=== PATIENT | female | born 1965 | race Caucasian/White ===

== ENCOUNTER → 2024-09-24 11:22 | Outpatient (BNVA) | payer OTHER, MEDICAID, SELFPAY | PROVIDERS: PCP Family Medicine; Visit Provider Family Medicine | DX: G25.81 Restless legs syndrome (principal); G57.93 Unspecified mononeuropathy of bilateral lower limbs; Z13.6 Encounter for screening for cardiovascular disorders | CPT/HCPCS: 80053; 80061; 82607; 82728; 83036; 84443; 85025 ==

== ENCOUNTER 2024-10-07 12:45 | Outpatient (CLI) | payer OTHER, MEDICAID, SELFPAY ==
--- NOTE | 2024-10-07 12:40 | MM_ITS ---
WS: [id number] BILATERAL 3D TOMOSYNTHESIS DIGITAL SCREENING MAMMOGRAPHY WITH CAD CLINICAL INFORMATION: SCREENING HISTORY: Screening mammogram. No current complaints. COMPARISON: None. TECHNIQUE: Bilateral CC and MLO views. FINDINGS: Scattered fibroglandular densities bilaterally. No suspicious focal mass, asymmetry, calcifications, or architectural distortion. No evidence of malignancy. Vascular calcification MM/MM scr BI tomosynthesis [id number] IMPRESSION: DENSITY: There are scattered areas of fibroglandular density. BI-RADS: 2 - Benign. FOLLOW UP: 1 Year Follow-up Recommend return to annual screening mammography.
== END 2024-10-07 12:46 | disposition home or self-care (01) ==
PROVIDERS: PCP Family Medicine; Visit Provider Family Medicine
DX: Z12.31 Encounter for screening mammogram for malignant neoplasm of breast (principal); D50.9 Iron deficiency anemia, unspecified; R92.323 Mammographic fibroglandular density, bilateral breasts; R92.1 Mammographic calcification found on diagnostic imaging of breast
CPT/HCPCS: 77063; 77067; 82728; 83550

== ENCOUNTER 2024-10-19 15:38 | Emergency (ER) | payer OTHER, MEDICAID, SELFPAY ==
[2024-10-19 15:41] VITALS: BP 105/68; PULSE 65; RESP 16; TEMP 36.6; O2SAT 94; BMI 23.8
[2024-10-19 16:07] VITALS: BP 114/62; PULSE 65; O2SAT 94
--- NOTE | 2024-10-19 16:15 | XRR_ITS ---
PROCEDURE INFORMATION: Exam: XR Left Knee Exam date and time: 10/19/2024 4:20 PM Age: 59 years old Clinical indication: Injury or trauma; Other: PT unsure if injury; Blunt trauma; Left; Injury details: PT presents with bilateral knee pain. Patient verbalizes heavy ETOH in system TECHNIQUE: Imaging protocol: Radiologic exam of the left knee. Views: 3 views. COMPARISON: CR XR tibia fibula LT 2V [id number] 10/19/2024 4:20 PM FINDINGS: Bones/joints: Normal. Soft tissues: Normal. XR/XR knee LT 3V* [id number] IMPRESSION: No acute findings.
--- NOTE | 2024-10-19 16:15 | XRR_ITS ---
PROCEDURE INFORMATION: Exam: XR Left Tibia and Fibula Exam date and time: 10/19/2024 4:20 PM Age: 59 years old Clinical indication: Pain; Lower leg; Left; Additional info: Injury/pain TECHNIQUE: Imaging protocol: Radiologic exam of the left tibia and fibula. Views: 2 views. COMPARISON: CR XR knee LT 3V* [id number] 10/19/2024 4:20 PM FINDINGS: Bones/joints: Normal. Soft tissues: Normal. XR/XR tibia fibula LT 2V [id number] IMPRESSION: No acute findings.
--- NOTE | 2024-10-19 16:16 | ED_ITS ---
HPI - Extremity Problem General: Chief complaint: Extremity Problem,Nontraumatic Stated complaint: both knee pain Time Seen by Provider: 10/19/24 15:47 Source: patient Mode of arrival: ambulatory Limitations: no limitations History of Present Illness: Patient is a 59-year-old female who presents to the emergency department incredibly intoxicated and sobbing complaining of left knee pain. Patient sta [place] she was walking today when she felt like her left knee buckled. She states she did not fall but now she has pain to her knee and has noticed some bruising laterally and is concerned about this. Patient has been ambulatory since the fall. Again she is incredibly intoxicated and frequently asked for pain medications. She denies any other injuries/concerns apart from the left knee area. Looking at previous documentation, she has seen primary care recently for symptoms related to lower extremity neuropathy and restless leg syndrome. MD Complaint: extremity pain and joint pain Onset (ago): hour(s) Pain Consistency: constant Location: left and knee Radiation: none Relieving factors: nothing Exacerbating factors: range of motion and palpation Associated symptoms: Reports no associated symptoms; Deny chest pain Related Data Home Medications ?Medication ?Instructions ?Recorded ?Confirmed bupropion HCl 100 mg tablet,12 hr 100 mg PO QAM 09/24/24 sustained-release (Wellbutrin SR) escitalopram oxalate 20 mg tablet 20 mg PO DAILY 09/2409/24/24 (Lexapro) lorazepam 1 mg tablet 1 mg PO TID PRN 09/24/2401/11 Allergies Allergy/AdvReac Type Severity Reaction Status Date / Time tramadol Allergy Mild skin Verified 09/24/24 09:43 blotchy trazodone Allergy Unknown Unknown Verified 09/24/24 09:43 IV contrast dye Allergy Intermediate swelling Uncoded 09/24/24 09:43 Review of Systems Card: Denies: chest pain Resp: Denies: dyspnea Musc: Reports: extremity pain and joint pain; Denies: neck pain, back pain, extremity swelling, joint swelling, joint redness, joint warmth, joint stiffness, limited range of motion or muscle weakness Neuro: Denies: numbness in extremities, weakness in extremities, sensory changes or difficulty walking [facility] ED PFSH: Medical History Marijuana use Smoker Anxiety Depression Surgical History History of bilateral tubal ligation History of laparoscopic cholecystectomy Family History Mother Ovarian cancer Father Liver cancer Alcohol dependence Sister Lupus (systemic lupus erythematosus) Sister Neuropathy Social History Smoking and tobacco/nicotine status: current every day tobacco/nicotine user cigarettes Packs smoked per day: 0.5 Years cigarettes smoked: 10 [ Other cigarette details: smoked of and on since the age of 16] Quit status (tobacco/nicotine): not considering quitting Second hand smoke exposure: Yes Alcohol intake: current Alcohol intake frequency: 0-2 Drinks per Day Alcohol type: beer Substance/Drug Use: current Substance/Drug use frequency: few times a week Adopted: No Caregiver/support person: Yes Lives independently: Yes Household members: significant other Marital status: Number of children: 3 service: No Current occupational status: disabled Pets and animals: Yes Pets & animals: cat(s) and dog(s) Do you think of yourself as: Straight/Heterosexual Current gender identity: Female Special kevin needs: No Agree to transfusion: Yes Physical Exam Const: COMMON NORMALS: patient oriented x3 and alert GENERAL APPEARANCE: cooperative, disheveled and odor of alcohol detected ORIENTATION/CONSCIOUSNESS: Yes awake, Yes oriented to person, Yes oriented to pl [address] and Yes oriented to time OTHER: intoxicated Extremity: COMMON NORMALS: full ROM, capillary refill normal, no joint enlargement, no clubbing, cyanosis or edema, no calf tenderness and no pedal edema GENERAL: Yes normal exam except as noted LEFT LOWER EXTREMITY: Yes knee joint (TTP lateral L knee; mild ecchymosis; no effusion) Left knee: Yes ROM (normal passive ROM) and Yes neurovascular exam (normal), Yes ankle joint (normal ROM of ankle joint) and Yes foot & digits (reporting neuropathy to feet) Neuro: COMMON NORMALS: patient oriented x3, moves all extremities, no focal mo tor deficits and no sensory deficits noted SENSORIUM/ORIENTATION: Yes alert, Yes oriented to person, Yes oriented to place and Yes oriented to time Course Vital Signs: Vital signs: Vital Signs Temperature 97.9 F 10/19/24 15:41 Pulse Rate 65 10/19/24 16:07 Respiratory Rate 16 10/19/24 15:41 Blood Pressure 114/62 10/19/24 16:07 Pulse Oximetry 94 10/19/24 16:07 Oxygen Delivery Me thod Room Air 10/19/24 16:07 MDM - Extremity (Nontraumatic) Medical Decision Making Patient's XRs are unremarkable. She is ambulatory here without difficulty or assistance. She frequently asked for pain medication. Reviewed previous documentation by primary care which reports neuropathy and RLS like symptoms. We did discuss Lyrica and Gabapentin-both of which she has been and don't work . Discussed other options for RLS but states she tried those too. Asks multiple times for pain meds which I told her I am not writing her for today based on symptoms. Recommend she follows up with primary care. XR interpretation done by ED provider, pending radiology final review Discharge Plan Discharge Patient Disposition: Home Clinical Impression: Knee joint pain Qualifiers: Laterality: left Qualified Code(s): M25.562 - Pain in left knee Condition: Stable Prescriptions: No Action bupropion HCl [Wellbutrin SR] 100 mg tablet sustained-release 12 hr 100 mg PO QAM lorazepam 1 mg tablet 1 mg PO TID PRN escitalopram oxalate [Lexapro] 20 mg tablet 20 mg PO DAILY Discharge Orders: Discharge ED (Routine); Ordered 10/19/24 Ordered By: Beth Mcgraw Referrals: Dania Crook MD [Primary Care Provider, [facility]] Activity Restrictions/Additional Instructions: As we discussed, please contact your primary care provider to schedule a follow- up visit to go over recent blood work as well as options for treatment of your neuropathy and restless leg syndrome. Print Language: Belarusian Coding Level of Care Code ED Chief Technician [employer] for [facility] Monroy
[2024-10-19] MEDS: ketorolac 30 mg/mL INJ IM (16:21)
== END 2024-10-19 16:59 | disposition home or self-care (01) ==
PROVIDERS: Emergency Provider Physician Assistant; PCP Family Medicine
DX: M25.562 Pain in left knee (principal); F17.210 Nicotine dependence, cigarettes, uncomplicated
CPT/HCPCS: 73562; 73590; 96372; 99284; J1885

== ENCOUNTER 2024-11-02 23:45 | Emergency (ER) | payer OTHER, MEDICAID, SELFPAY ==
[2024-11-03] VITALS (7 sets, daily range): BP systolic 108–140; BP diastolic 68–83; PULSE 51–55; RESP 16; O2SAT 92–95; BMI 24.5
[2024-11-03 01:30] LABS: Bilirubin Urine Negative (Negative); Blood Urine Negative (Negative); Glucose Urine UA Negative (Normal); Ketones Urine Negative (Negative); Leukocyte Esterase Urine 2+ (Negative); Nitrate Urine Negative (Negative); Protein Urine Negative (Negative); Specific Gravity, Urine 1.005 (1.005-1.030); Urine Appearance Clear (CLEAR); Urine Color Yellow (Yellow); Urobilinogen Urine 0.2 mg/dL (Negative); pH Urine 6.5 (5-7)
[2024-11-03 01:35] LABS: Bacteria Urine None Seen /hpf; Hyaline Casts Urine 0-4 /lpf; RBC Urine 0-2 /hpf (0-2)
[2024-11-03 02:08] LABS: Basophils % 0.4 %; Eosinophils # 0.2 10^3/uL (0.0-0.8); Eosinophils % 3.9 %; Hematocrit 41.2 % (36-47); Lymphocytes # 2.3 10^3/uL (0.8-4.8); Lymphocytes % 50.1 %; Mean Corpuscular HGB Conc 33.5 g/dL (30-55); Mean Corpuscular Hemoglobin 32.6 pg (27-33); Mean Corpuscular Volume 97.4 fl (85-98); Mean Platelet Volume 9.1 fL (7.4-10.4); Monocytes # 0.4 10^3/uL (0.2-0.9); Monocytes % 9.6 %; Neutrophils # 1.63 10^3/uL (1.8-7.7); Neutrophils % 35.8 %; Nucleated Red Blood Cells % 0 %; Platelet Count 214 10^3/cmm (157-399); Red Blood Count 4.23 10^6/uL (3.85-5.65); White Blood Count 4.57 10^3/uL (3.29-11.43)
[2024-11-03 02:10] LABS: Add Urine Culture? No
[2024-11-03 02:15] LABS: Erythrocyte Sedimentation Rate 15 mm/hr (0-15)
[2024-11-03 02:33] LABS: Lactic Sepsis W/Reflex 1.6 mmol/L (0.5-2.2)
[2024-11-03 02:34] LABS: Alanine Aminotransferase 20 U/L (0-33); Albumin Level 4.2 g/dL (3.5-5.2); Alkaline Phosphatase 88 U/L (35-105); Anion Gap 15.2 (5-19); Aspartate Amino Transferase 33 U/L (0-32); Blood Urea Nitrogen 10 mg/dL (6-20); Calcium 8.8 mg/dL (8.5-10.5); Carbon Dioxide 28 mmol/L (22-29); Chloride 102 mmol/L (98-107); Creatinine Clr Calc Pharmacy 103.9872; Globulin 2.9 g/dL (1.3-4.6); Glomerular Filtration Rate 126.3 mL/min (90-130); Glucose 86 mg/dL (65-115); Osmolality Calculated 290 mOsm/kg (285-295); Potassium 4.2 mmol/L (3.5-5.1); Sodium 141 mmol/L (136-145); Total Protein 7.1 g/dL (6.6-8.7)
[2024-11-03 02:36] LABS: Slide Review Slide Review Perform
--- NOTE | 2024-11-03 03:00 | W.ED.EXTPRO ---
HPI - Extremity Problem General: Chief complaint: Extremity Injury, Lower Stated complaint: Lower Left Leg Injury Time Seen by Provider: 11/03/24 02:33 History of Present Illness: 59-year-old woman who presents to the emergency room with left leg pain. She states her core got wrapped around her leg and she has a superficial laceration of the left leg laterally just above the ankle that happened 3 days ago. She is also having some swelling in her ankle. It is tender. No redness. No warmth. No signs of infection. She does have some edema on the lateral malleolus. No injury to that. Related Data Home Medications ?Medication ?Instructions ?Recorded ?Confirmed bupropion HCl 100 mg tablet,12 hr 100 mg PO QAM 09/24/24 09/24/24 sustained-release (Wellbutrin SR) escitalopram oxalate 20 mg tablet 20 mg PO DAILY 09/24/24 09/24/24 (Lexapro) lorazepam 1 mg tablet 1 mg PO TID PRN 09/24/24 09/24/24 Previous Rx's ?Medication ?Instructions ?Recorded cephalexin 500 mg tablet 500 mg PO TID 7 days #21 tabs 11/03/24 diclofenac sodium 50 mg 50 mg PO BID PRN pain #14 tabs 11/03/24 tablet,delayed release Allergies Allergy/AdvReac Type Severity Reaction Status Date / Time tramadol Allergy Mild skin Verified 09/24/24 09:43 blotchy trazodone Allergy Unknown Unknown Verified 09/24/24 09:43 IV contrast dye Allergy Intermediate swelling Uncoded 09/24/24 09:43 Review of Systems Narrative: Constitutional symptoms: Negative except as documented in HPI. Skin symptoms: Negative except as documented in HPI. Eye symptoms: Negative except as documented in HPI. ENMT symptoms: Negative except as documented in HPI. Respiratory symptoms: Negative except as documented in HPI. Cardiovascular symptoms: Negative except as documented in HPI. Gastrointestinal symptoms: Negative except as documented in HPI. Genitourinary symptoms: Negative except as documented in HPI. Musculoskeletal symptoms: Negative except as documented in HPI. Neurologic symptoms: Negative except as documented in HPI. Psychiatric symptoms: Negative except as documented in HPI. Endocrine symptoms: Negative except as documented in HPI. [facility] ED PFSH: Medical History Marijuana use Smoker Anxiety Depression Surgical History History of bilateral tubal ligation History of laparoscopic cholecystectomy Family History Mother Ovarian cancer Father Liver cancer Alcohol dependence Sister Lupus (systemic lupus erythematosus) Sister Neuropathy Social History Smoking and tobacco/nicotine status: current every day tobacco/nicotine user cigarettes Packs smoked per day: 0.5 Years cigarettes smoked: 10 [ Other cigarette details: smoked of and on since the age of 16] Quit status (tobacco/nicotine): not considering quitting Second hand smoke exposure: Yes Alcohol intake: current Alcohol intake frequency: 0-2 Drinks per Day Alcohol type: beer Substance/Drug Use: current Substance/Drug use frequency: few times a week Adopted: No Caregiver/support person: Yes Lives independently: Yes Household members: significant other Marital status: Number of children: 3 service: No Current occupational status: disabled Pets and animals: Yes Pets & animals: cat(s) and dog(s) Do you think of yourself as: Straight/Heterosexual Current gender identity: Female Special kevin needs: No Agree to transfusion: Yes Physical Exam Narrative: EXAM NARRATIVE: General: Alert, no acute distress. Skin: warm and dry there is a superficial laceration just above the left lateral malleolus. No signs of infection. No erythema. No warmth. Head: Normocephalic Neck: Trachea midline Eye: Extraocular movements are intact. Ears, nose, mouth and throat: Oral mucosa moist Respiratory: Respirations are non-labored Musculoskeletal: Normal ROM, some swelling of her left lateral malleolus Gastrointestinal: Abdomen does not appear distended Neurological: Alert and oriented, No focal neurological deficit observed. Psychiatric: Cooperative, appropriate mood & affect. Course Vital Signs: Vital signs: Vital Signs Pulse Rate 54 L 11/03/24 02:57 Respiratory Rate 16 11/03/24 00:17 Blood Pressure 139/75 11/03/24 02:57 Pulse Oximetry 95 11/03/24 02:57 Oxygen Delivery Me thod Room Air 11/03/24 00:17 MDM - Extremity (Nontraumatic) Medical Decision Making Medical decision making: Differential diagnosis including but not limited to and based on the above HPI, review of systems and physical exam in this patient with lower extremity swelling: Cellulitis, DVT, osteomyelitis, venous stasis dermatitis. Orders placed to evaluate differential diagnosis based on the above differential, HPI and physical exam Lab Review: Laboratory results were reviewed and interpreted by myself the emergency room physician. No leukocytosis. No anemia. No significant elevation in ESR or CRP. She does have a bit of a urinary tract infection. I reviewed the patient's medical record. Assessment and plan: Urinary tract infection Superficial laceration ? IV Rocephin and IV Toradol in the emergency room - Discharged home - Discussed plan with patient. Answered any questions. - Evaluation and treatment of this problem were appropriate in the emergency setting. Lab Data 11/03/24 01:57 11/03/24 01:57 Laboratory Results WBC 4.57 10^3/uL (3.29-11.43) 11/03/24 01:57 RBC 4.23 10^6/uL (3.85-5.65) 11/03/24 01:57 Hgb 13.80 g/dL (11.27-16.99) 11/03/24 01:57 Hct 41.2 % (36-47) 11/03/24 01:57 MCV 97.4 fl (85-98) 11/03/24 01:57 MCH 32.6 pg (27-33) 11/03/24 01:57 MCHC 33.5 g/dL (30-55) 11/03/24 01:57 RDW 13.0 % (12.1-15.1) 11/03/24 01:57 Plt Count 214 10^3/cmm (157-399) 11/03/24 01:57 MPV 9.1 fL (7.4-10.4) 11/03/24 01:57 Neut % (Auto) 35.8 % 11/03/24 01:57 Lymph % (Auto) 50.1 % 11/03/24 01:57 [place] % (Auto) 9.6 % 11/03/24 01:57 Eos % (Auto) 3.9 % 11/03/24 01:57 Baso % (Auto) 0.4 % 11/03/24 01:57 Neut # (Auto) 1.63 10^3/uL (1.8-7.7) L 11/03/24 01:57 Lymph # (Auto) 2.3 10^3/uL (0.8-4.8) 11/03/24 01:57 [place] # (Auto) 0.4 10^3/uL (0.2-0.9) 11/03/24 01:57 Eos # (Auto) 0.2 10^3/uL (0.0-0.8) 11/03/24 01:57 Baso # (Auto) 0.0 10^3/uL (0.0-0.1) 11/03/24 01:57 Nucleated RBC % (auto) 0 % 11/03/24 01:57 Nucleated RBCs # 0.0 /100WBC 11/03/24 01:57 ESR 15 mm/hr (0-15) 11/03/24 01:57 Sodium 141 mmol/L (136-145) 11/03/24 01:57 Potassium 4.2 mmol/L (3.5-5.1) 11/03/24 01:57 Chloride 102 mmol/L (98-107) 11/03/24 01:57 Carbon Dioxide 28 mmol/L (22-29) 11/03/24 01:57 Anion Gap 15.2 (5-19) 11/03/24 01:57 BUN 10 mg/dL (6-20) 11/03/24 01:57 Creatinine 0.5 mg/dL (0.5-0.9) 11/03/24 01:57 GFR Calculation 126.3 mL/min (90-130) 11/03/24 01:57 Glucose 86 mg/dL (65-115) 11/03/24 01:57 Calculated Osmolality 290 mOsm/kg (285-295) 11/03/24 01:57 Lactic Acid 1.6 mmol/L (0.5-2.2) 11/03/24 01:57 Calcium 8.8 mg/dL (8.5-10.5) 11/03/24 01:57 AST 33 U/L (0-32) H 11/03/24 01:57 ALT 20 U/L (0-33) 11/03/24 01:57 Alkaline Phosphatase 88 U/L (35-105) 11/03/24 01:57 C-Reactive Protein 3.0 mg/L (0.0-4.9) 11/03/24 01:57 Total Protein 7.1 g/dL (6.6-8.7) 11/03/24 01:57 Albumin 4.2 g/dL (3.5-5.2) 11/03/24 01:57 Globulin 2.9 g/dL (1.3-4.6) 11/03/24 01:57 Urine Color Yellow (Yellow) 11/03/24 01:06 Urine Appearance Clear (CLEAR) 11/03/24 01:06 Urine pH 6.5 (5-7) 11/03/24 01:06 Ur Specific [place] 1.005 (1.005-1.030) 11/03/24 01:06 Urine Protein Negative (Negative) 11/03/24 01:06 Urine Glucose (UA) Negative (Normal) 11/03/24 01:06 Urine Ketones Negative (Negative) 11/03/24 01:06 Urine Blood Negative (Negative) 11/03/24 01:06 Urine Nitrate Negative (Negative) 11/03/24 01:06 Urine Bilirubin Negative (Negative) 11/03/24 01:06 Urine Urobilinogen 0.2 mg/dL (Negative) 11/03/24 01:06 Ur Leukocyte Esterase 2+ (Negative) A 11/03/24 01:06 Urine RBC 0-2 /hpf (0-2) 11/03/24 01:06 Urine WBC 11-20 /hpf (0-5) H 11/03/24 01:06 Ur Squamous Epith Cells 6-10 /hpf (0-5) 11/03/24 01:06 Amorphous Sediment Not Reportable 11/03/24 01:06 Urine Bacteria None seen /hpf (NONE) 11/03/24 01:06 Hyaline Casts 0-4 /lpf H 11/03/24 01:06 No radiology studies performed this visit Discharge Plan Discharge Patient Disposition: Home Clinical Impression: Superficial laceration of lower extremity, Urinary tract infection Condition: Stable Prescriptions: New cephalexin 500 mg tablet 500 mg PO TID 7 Days Qty: 21 0RF diclofenac sodium 50 mg tablet,delayed release (DR/EC) 50 mg PO BID PRN (Reason: pain) Qty: 14 0RF No Action bupropion HCl [Wellbutrin SR] 100 mg tablet sustained-release 12 hr 100 mg PO QAM lorazepam 1 mg tablet 1 mg PO TID PRN escitalopram oxalate [Lexapro] 20 mg tablet 20 mg PO DAILY Discharge Orders: Discharge ED (Routine); Ordered 11/03/24 Ordered By: Sydnee Gómez Referrals: Dania Crook MD [Primary Care Provider, Family Practice] Discharge Diet: Usual diet Discharge Activity: Increase activity as tolerated Patient Instructions: Laceration Without Closure (ED), Opioid Safety, Pain Management Activity Restrictions/Additional Instructions: Thank you for choosing [facility] for your healthcare needs today. You have been screened and evaluated and felt safe for discharge. Health conditions do change or evolve sometimes and as such it is important that you follow up with your Primary Doctor to be re checked, 3-5 days is a general good time frame for follow up. You are always welcome to return to the ED for re assessment if your symptoms are worsening or you have new concerns Print Language: Qatari Coding Level of Care Code ED Investment Trader for It[facility] Monroy
[2024-11-03] MEDS: ketorolac 30 mg/mL INJ IVP (03:09)
[2024-11-03] MEDS: cefTRIAXone 1,000 mg SDV 1000 MG IVP (03:11)
[2024-11-03 04:37] LABS: Total Bilirubin 0.2 mg/dL (0.15-1.2)
== END 2024-11-03 05:33 | disposition home or self-care (01) ==
PROVIDERS: Emergency Provider Emergency Medicine; PCP Family Medicine
DX: S81.812A Laceration without foreign body, left lower leg, initial encounter (principal); N39.0 Urinary tract infection, site not specified; F17.210 Nicotine dependence, cigarettes, uncomplicated; X58.XXXA Exposure to other specified factors, initial encounter
CPT/HCPCS: 36415; 80053; 81001; 83605; 85025; 85651; 86140; 96374; 96375; 99284; J0696; J1885

== ENCOUNTER → 2024-11-03 15:01 | Outpatient (BNVA) | payer OTHER, MEDICAID, SELFPAY | PROVIDERS: PCP Family Medicine; Visit Provider Podiatrist Foot & Ankle Surgery | DX: L60.3 Nail dystrophy (principal) | CPT/HCPCS: 99203 ==

== ENCOUNTER → 2024-12-09 14:31 | Outpatient (BNVA) | payer OTHER, MEDICAID, SELFPAY | PROVIDERS: PCP Family Medicine; Visit Provider Podiatrist Foot & Ankle Surgery | DX: L60.3 Nail dystrophy (principal) | CPT/HCPCS: 99213 ==

== ENCOUNTER 2025-03-24 12:34 | Outpatient (CLI) | payer MEDICARE, MEDICAID, SELFPAY ==
--- NOTE | 2025-03-24 13:00 | CT_ITS ---
WS: [id number] LDCT LUNG CANCER SCREENING TECHNIQUE: Noncontrast CT of the chest with coronal and sagittal reformatted images. CLINICAL INFORMATION: lung cancer screening COMPARISON: None. DLP: 49.31 mGy.cm DIvol: Mean CTDIvol: 0.80 (mGy) All CT scans at [facility] use at least one of these dose optimization techniques: automated exposure control; mA and/or kV adjustment per patient size (includes targeted exams where dose is matched to clinical indication); or iterative reconstruction. FINDINGS: Several scattered tiny micronodules. Small RIGHT perifissural nodules. Largest measures 3.5 mm. No mediastinal or hilar lymphadenopathy. No axillary lymphadenopathy. Small esophageal hiatal hernia. Aortic calcification. Normal caliber thoracic aorta. Coronary calcification. Aberrant RIGHT subclavian artery. CT/CT lung screening [id number] IMPRESSION: LUNG-RADS: 2-Benign Appearance or Behavior FOLLOW UP: 12 Month: Continue annual screening with LDCT
== END 2025-03-24 12:35 | disposition home or self-care (01) ==
LOC: RAD 12:35
PROVIDERS: PCP Family Medicine; Visit Provider Family Medicine
DX: Z87.891 Personal history of nicotine dependence (principal); R91.8 Other nonspecific abnormal finding of lung field; K44.9 Diaphragmatic hernia without obstruction or gangrene
CPT/HCPCS: 71271